=== PATIENT | female | born 2000 | race Two or more races ===

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

== ENCOUNTER 2020-01-14 16:56 | Emergency (ER) | payer SELFPAY ==
[~2020-01-14] VITALS: Ht 167.6 cm; Wt 64.0 kg
[~2020-01-14 16:56] MED LIST changes: +LACT20SO PO
--- NOTE | 2020-01-14 18:59 | PHYS DOC ---
Past Medical History Past Medical History: No Pertinent History Additional Past Medical Histor: PAST HYPERVENTALATION (VERNELL HERNANDEZ INSURANCE RISK SURVEYOR) Past Surgical History: Other Additional Past Surgical Histo: D & C (VERNELL HERNANDEZ INSURANCE RISK SURVEYOR) Smoking Status: Never Smoker Alcohol Use: None Drug Use: None (VERNELL HERNANDEZ APRN) General Adult EDM: Chief Complaint: OTHER COMPLAINTS HPI: HPI: Patient is a 19 year old female who presents with 3 days of no no taste, smell, headache. She is here for a Covid test. Patient denies shortness of breath, chest pain, abdominal pain, nausea, vomiting, diarrhea, dizziness, cough. Rajinder es any pain at this time. She states she is eating and drinking appropriately. She has a past medical history of hyperventilation and D&C. (VERNELL HERNANDEZ INSURANCE RISK SURVEYOR) Review of Systems: Review of Systems: Constitutional: Denies fever or chills. [] Eyes: Denies change in visual acuity. [] HENT: Denies nasal congestion or sore throat. + Loss of taste and smell no [] Respiratory: Denies cough or shortness of breath. [] Cardiovascular: Denies chest pain or edema. [] GI: Denies abdominal pain, nausea, vomiting, bloody stools or diarrhea. [] : Denies dysuria. [] Musculoskeletal: Denies back pain or joint pain. [] Integument: Denies rash. [] Neurologic: + headache, denies focal weakness or sensory changes. [] Endocrine: Denies polyuria or polydipsia. [] Lymphatic: Denies swollen glands. [] Psychiatric: Denies depression or anxiety. [] (VERNELL HERNANDEZ INSURANCE RISK SURVEYOR) Heart Score: Risk Factors: Risk Factors: DM, Current or recent (<one month) smoker, HTN, HLP, family history of CAD, obesity. Risk Scores: Score 0 - 3: 2.5% MACE over next 6 weeks - Discharge Home Score 4 - 6: 20.3% MACE over next 6 weeks - Admit for Clinical Observation Score 7 - 10: 72.7% MACE over next 6 weeks - Early Invasive Strategies (VERNELL HERNANDEZ INSURANCE RISK SURVEYOR) Allergies: Allergies: Allergies Coded Allergies Type Severity Reaction Last Updated Verified No Known Drug Allergies 10/29/19 No ([facility]) Physical Exam: PE: Constitutional: Well developed, well nourished, no acute distress, non-toxic appearance. [] HENT: Normocephalic, atraumatic, bilateral external ears normal, oropharynx moist, no oral exudates, nose normal. [] Eyes: PERRLA, EOMI, conjunctiva normal, no discharge. [] Neck: Normal range of motion, no tenderness, supple, no stridor. [] Cardiovascular:Heart rate regular rhythm, no murmur [] Lungs & Thorax: Bilateral breath sounds clear to auscultation [] Abdomen: Bowel sounds normal, soft, no tenderness, no masses, no pulsatile masses. [] Skin: Warm, dry, no erythema, no rash. [] Back: No tenderness, no CVA tenderness. [] Extremities: No tenderness, no cyanosis, no clubbing, ROM intact, no edema. [] Neurologic: Alert and oriented X 3, normal motor function, normal sensory function, no focal deficits noted. [] Psychologic: Affect normal, judgement normal, mood normal. Normal physical exam [] ([facility] Current Patient Data: Vital Signs: Vital Signs Date Time Temp Pulse Resp B/P (MAP) Pulse Ox O2 Delivery O2 Flow Rate FiO2 01/14/20 17:25 98.6 60 16 140/78 (98) 100 Room Air 98.6 ([facility] EKG: EKG: [] ([facility]) Radiology/Procedures: Radiology/Procedures: [] ([facility]) Course & Med Decision Making: Course & Med Decision Making Pertinent Labs and Imaging studies reviewed. (See chart for details) COVID-19 CRITERIA: The patient was evaluated during the global COVID-19 pandemic, and that diagnosis was suspected/considered upon their initial presentation. Their evaluation, treatment and testing was consistent with current guidelines for patients who present with complaints or symptoms that may be related to COVID-19. See HPI. Alert and oriented x4. Speaks in full complete sentences. Ambulatory with a steady gait. Skin pink warm and dry. Vital signs within normal limits. Patient is tested for Covid and is discharged home to quarantine. [] (VERNELL HERNANDEZ APRN) La Disclaimer: [place] Disclaimer: This electronic medical record was generated, in whole or in part, using a voice recognition dictation system. (VERNELL HERNANDEZ APRN) COVID-19 Patient Risks: Age 65 or older: No Sign of co-morbidity: No Exp to person + for COVID: No Exp to PUI: No Travel from affected area: No Lower respiratory symptoms: No Fever: No Other: Yes (LOSS OF TASTE AND SMELL, HEADACHE) (VERNELL HERNANDEZ APRN) PPE Use: Full PPE with N95 mask or PAPR: Yes (VERNELL HERNANDEZ APRN) Departure Departure Impression: Primary Impression: Person under investigation for COVID-19 Additional Impressions: Loss of taste Loss of smell Disposition: 01 DC HOME SELF CARE/HOMELESS Condition: STABLE Referrals: NO PCP (PCP) Patient Instructions: General Headache Without Cause Additional Instructions: Drink plenty of fluids. Follow-up with primary care provider if needed. Take Tylenol or ibuprofen for your pain. If you begin having severe shortness of breath or chest pain return to the emergency room. You have been tested for or diagnosed with COVID-19. It is an infection caused by a new type of coronavirus. COVID-19 will cause cold-like or mild flu symptoms in most. It can cause more severe symptoms like problems breathing in some. There is no treatment for COVID-19. The body will clear the infection over time. Self-care will help to ease discomfort. Steps to Take: Self-Care Rest as needed. Healthy habits may help you feel better. Steps include: Choose healthy foods including fruits and vegetables. Drink water throughout the day. Get plenty of sleep each night. If you smoke, try to quit. It may ease breathing. Avoid alcohol. Keep Others Healthy The virus can spread to others. Droplets are released every time you sneeze or cough. The droplets can get into the mouth, nose, or eyes of people near you and lead to infection. To lower the chances of spreading COVID-19 to others: Stay at home until your doctor has said it is safe to leave. If you tested positive this will mean staying isolated until both of the following are true: At least 7 days have passed since the start of illness. You are free of fever for at least 72 hours without the use of medicine. During this time: - Avoid public areas, events, or transportation. Do not return to work or s chool until your doctor has said it is safe to do so. - Call ahead if you need to go to a medical center. Let them know you may have COVID-19. It will help them guide you where to go. They may also ask you to wear a facemask when you come to the office. - If you call for emergency medical services, let them know you may have COVID- 19. While at home: - Try to avoid close contact with others. Stay about 6 feet away. - If possible, spend most of your time in a separate room from others. - Use a face mask if you will be in close contact with others such as sharing a room or vehicle. - Have someone wipe down common surfaces in the home. Use household charge auditor every day on areas like doorknobs, counters, or sinks. - Cough or sneeze into a tissue. Throw the tissue away right after use. If a tissue is not available, cough or sneeze into your elbow. - Wash your hands often. Wash them after sneezing or coughing. Use soap and water and wash for at least 20 seconds. Alcohol based hand tar heat exchanger cleaner can be used if soap and water is not available. - Do not prepare food for others. Avoid sharing personal items like forks, spoons, or toothbrushes. - Avoid close contact with pets while you are sick. There is no evidence of the virus passing to pets. This is a safety step until more is known about this virus. Isolation can be frustrating. Social interaction can help. Keep in touch with fr iends and family through phone and tech options. You can still interact with others in your home, just keep a safe distance of about 6 feet. Follow-up: Your doctors office will check in with you to see if there are any changes in your health. You may be asked to keep track of symptoms to share with them. They will also let you know when you are clear to be in public again. Problems to Look Out For: Contact your doctor if your recovery is not going as you expect. Get emergency care if you have problems such as: - Trouble breathing - Nonstop chest pain or pressure - Changes in awareness, confusion, or problems waking - Lips or face have bluish color - Worsening of symptoms If you think you have an emergency, call for emergency medical services right away. As taken from [facility] Attending Signature Attending Signature I have reviewed the PA/TESTER SOUND's note and plan of care. I was available for consultation as needed during the patient's visit in the emergency department. I agree with the clinical impression, plan, and disposition. (MIKEL ADHIKARI DO) VERNELL HERNANDEZ APRN Jan 14, 2020 18:59 MIKEL ADHIKARI DO Jan 14, 2020 23:06
[2020-01-14 19:05] VITALS: BP 129/92
--- NOTE | 2020-01-17 09:09 | NUR ---
IP: Informed pt of positive COVID test and the need to quarantine for 14 days. Pt verbalized understanding.
== END 2020-01-14 19:05 | disposition home or self-care (01) ==
LOC: ER 16:56
DX: U07.1 COVID-19 (principal); R51.9 Headache, unspecified; R43.8 Other disturbances of smell and taste
CPT/HCPCS: 99283; C9803; U0003

== ENCOUNTER 2020-02-05 11:26 | Emergency (ER) | payer SELFPAY ==
[~2020-02-05] VITALS: Ht 167.6 cm; Wt 66.8 kg
[2020-02-05 12:32] LABS: BILIRUBIN,URINE NEGATIVE (NEG); CLARITY,URINE CLEAR; COLOR,URINE YELLOW; NITRITE,URINE NEGATIVE (NEG); PH,URINE 6.5 (<5.0-8.0); PROTEIN,URINE NEGATIVE (NEG-TRACE); UROBILINOGEN,URINE 0.2 mg/dL (0.2 mg/dL)
[2020-02-05 12:59] LABS: BACTERIA,URINE FEW /HPF (0-FEW); RBC,URINE 0 /HPF (0-2); WBC,URINE 0 /HPF (0-4)
--- NOTE | 2020-02-05 13:34 | ED.ADGEN ---
Past Medical History Past Medical History: No Pertinent History Additional Past Medical Histor: PAST HYPERVENTALATION Past Surgical History: Other Additional Past Surgical Histo: D & C Smoking Status: Never Smoker Alcohol Use: None Drug Use: None General Adult EDM: Chief Complaint: ABDOMINAL PAIN IN HPI: HPI: Patient is a 19 year old female, accompanied by her significant other, who presents to the emergency department for further evaluation of her . Patient states she was at a clinic in [facility] and they couldn't find anything on her ultrasound so they told her to come to the emergency department. Patient reports she is two, para zero, with one previous miscarriage at approximately 7 weeks gestation. She denies any abdo manpreet pain, back pain, nausea, vomiting, diarrhea, irregular vaginal discharge, vaginal bleeding, dysuria, hematuria, fever, cough, or shortness of breath. Patient states she has had increased urinary frequency. She is unsure of her last menstrual cycle was either at the end of November or the end of December. She currently denies any pain. Review of Systems: Review of Systems: Complete ROS is negative unless otherwise noted in HPI. Allergies: Allergies: Allergies Coded Allergies Type Severity Reaction Last Updated Verified No Known Drug Allergies 10/29/19 No Physical Exam: PE: See Above Constitutional: Well developed, well nourished, no acute distress, non-toxic appearance. [] HENT: Normocephalic, atraumatic, bilateral external ears normal, nose normal. [] Eyes: PERRLA, EOMI, conjunctiva normal, no discharge. [] Neck: Normal range of motion, no stridor. [] Cardiovascular:Heart rate regular rhythm Lungs & Thorax: Respirations even and unlabored, no retractions, no respiratory distress Abdomen: soft, no tenderness Skin: Warm, dry, no erythema, no rash. [] Extremities: No cyanosis, ROM intact, no edema. [] Neurologic: Alert and oriented X 3, no focal deficits noted. [] Psychologic: Affect normal, judgement normal, mood normal. [] Current Patient Data: Labs: Laboratory Tests Test 02/05/20 11:36 02/05/20 11:46 02/05/20 12:17 Urine Collection Type Unknown Urine Color Yellow Urine Clarity Clear Urine pH 6.5 (<5.0-8.0) Urine Specific [place] 1.015 (1.000-1.030) Urine Protein Negative mg/dL (NEG-TRACE) Urine Glucose (UA) Negative mg/dL (NEG) Urine Ketones (Stick) Negative mg/dL (NEG) Urine Blood Negative (NEG) Urine Nitrite Negative (NEG) Urine Bilirubin Negative (NEG) Urine Urobilinogen Dipstick 0.2 mg/dL (0.2 mg/dL) Urine Leukocyte Esterase Negative (NEG) Urine RBC 0 /HPF (0-2) Urine WBC 0 /HPF (0-4) Urine Squamous Epithelial Cells Few /LPF Urine Bacteria Few /HPF (0-FEW) Urine Mucus Slight /LPF POC Urine HCG, Qualitative Hcg positive (Negative) Maternal Serum HCG Beta Subunit 2374 mIU/mL (0-5) H Vital Signs: Vital Signs Date Time Temp Pulse Resp B/P (MAP) Pulse Ox O2 Delivery O2 Flow Rate FiO2 02/05/20 12:42 64 14 114/77 (89) 98 Room Air 02/05/20 11:36 98.3 98.3 EKG: EKG: [] Heart Score: Risk Factors: Risk Factors: DM, Current or recent (<one month) smoker, HTN, HLP, family history of CAD, obesity. Risk Scores: Score 0 - 3: 2.5% MACE over next 6 weeks - Discharge Home Score 4 - 6: 20.3% MACE over next 6 weeks - Admit for Clinical Observation Score 7 - 10: 72.7% MACE over next 6 weeks - Early Invasive Strategies Radiology/Procedures: Radiology/Procedures: PROCEDURE: OB <14 WKS W/TV OB ultrasound less than 14 weeks 02/05/2020 CLINICAL HISTORY: First trimester . Vaginal bleeding. TECHNIQUE: Using the distended urinary bladder as a sonographic window, a real-time ultrasound examination of the pelvis was performed. Additionally in an attempt to better evaluate the uterus and adnexa, a transvaginal ultrasound study was performed. Multiple images were obtained. FINDINGS: An oval-shaped fluid collection which resembles an early gestational sac is seen within the endometrial canal within the fundus/body of the uterus. This has a mean sac diameter of 5.1 mm which corresponds to an estimated gestational age by ultrasound of 5 weeks 2 days plus or minus a standard deviat ion of 6 days. No yolk sac or embryonic pole is seen within this gestational sac to confirm a living IUP this time. The Uterus is otherwise within normal limits. Both ovaries are within normal limits in size and echogenicity. The right ovary measures 3.5 x 3.2 x 2.4 cm in size. The left ovary measures 3.4 x 2.2 x 2.1 cm in size. No adnexal mass is seen. A small amount of free fluid is seen. IMPRESSION: Findings are seen consistent most likely with a very early IUP as discussed above. Electronically signed by: Molina Cason MD (02/05/2020 1:32 PM) [id number][] Course & Med Decision Making: Course & Med Decision Making I have reviewed the PA/CATECHIST's note and Plan of Care. I was available for consultation as needed during the patient's visit in the emergency department. I agree with the clinical impression, plans and disposition.Pertinent Labs and Imaging studies reviewed. (See chart for details) [] Dragon Disclaimer: Dragon Disclaimer: This electronic medical record was generated, in whole or in part, using a voice recognition dictation system. Departure Departure Impression: Primary Impression: Threatened in early Disposition: 01 DC HOME SELF CARE/HOMELESS Condition: STABLE Referrals: DIANE SCHUMACHER Jr, MD Patient Instructions: Threatened Miscarriage, [id number] Additional Instructions: Today your hCG level was 2374. This is consistent with a very early . Your ultrasound also had findings that are consistent with early intrauterine that measures 5 weeks and 2 days. I recommend that you follow-up with Dr. Hooper's office next week for a repeat ultrasound and recheck of your hCG level. Return to the ER if your symptoms worsen. LEO ESPINOZA APRN Feb 05, 2020 13:34 NABEEL HUA MD Feb 05, 2020 13:56
[2020-02-05 15:00] VITALS: BP 128/65
== END 2020-02-05 15:00 | disposition home or self-care (01) ==
LOC: ER 11:26
DX: O20.0 Threatened abortion (principal); Z3A.01 Less than 8 weeks gestation of pregnancy
CPT/HCPCS: 36415; 76801; 76817; 81001; 81025; 84702; 99284

== ENCOUNTER 2020-02-17 19:00 | Emergency (ER) | payer SELFPAY ==
[~2020-02-17] VITALS: Ht 167.6 cm; Wt 68.1 kg
[2020-02-17 19:45] LABS: BILIRUBIN,URINE NEGATIVE (NEG); CLARITY,URINE CLEAR; COLOR,URINE YELLOW; NITRITE,URINE NEGATIVE (NEG); PROTEIN,URINE NEGATIVE (NEG-TRACE); UROBILINOGEN,URINE 0.2 mg/dL (0.2 mg/dL)
[2020-02-17 19:50] LABS: BACTERIA,URINE 0 /HPF (0-FEW); BARBITURATES NEG (NEG); BENZODIAZEPINES NEG (NEG); CANNABINOIDS NEG (NEG); COCAINE NEG (NEG); METHADONE NEG (NEG); OPIATES NEG (NEG); PHENCYCLIDINE NEG (NEG); RBC,URINE 0 /HPF (0-2); WBC,URINE 0 /HPF (0-4)
[2020-02-17 19:51] LABS: AMPHETAMINE/METHAMPHETAMINE NEG (NEG)
[2020-02-17] MEDS ORDERED: FAMO-63 PO (19:53)
--- NOTE | 2020-02-17 19:53 | PHYS DOC ---
Past Medical History Past Medical History: No Pertinent History Additional Past Medical Histor: PAST HYPERVENTALATION (VERNELL HERNANDEZ IP LITIGATION ASSOCIATE) Past Surgical History: Other Additional Past Surgical Histo: D & C (VERNELL HERNANDEZ IP LITIGATION ASSOCIATE) Smoking Status: Never Smoker Alcohol Use: None Drug Use: None (VERNELL HERNANDEZ APRN) General Adult EDM: Chief Complaint: ABDOMINAL PAIN IN HPI: HPI: Patient is a 19 year old female who presents with at spicy [place] food tonight and then began having epigastric cramping and belching. She states the pain has now resolved. Currently denies nausea, vomiting, abdominal pain, chest pain, soa, dizziness, headache, diarrhea, fever, cough, numbness or tingling, abnormal vaginal discharge, vaginal bleeding. She states that she does have a OB and is taking her vitamins. (VERNELL HERNANDEZ IP LITIGATION ASSOCIATE) Review of Systems: Review of Systems: Constitutional: Denies fever or chills. [] Eyes: Denies change in visual acuity. [] HENT: Denies nasal congestion or sore throat. [] Respiratory: Denies cough or shortness of breath. [] Cardiovascular: Denies chest pain or edema. [] GI: + Epigastric abdominal pain, denies nausea, vomiting, bloody stools or diarrhea. [] : Denies dysuria. [] Musculoskeletal: Denies back pain or joint pain. [] Integument: Denies rash. [] Neurologic: Denies headache, focal weakness or sensory changes. [] Endocrine: Denies polyuria or polydipsia. [] Lymphatic: Denies swollen glands. [] Psychiatric: Denies depression or anxiety. [] (VERNELL HERNANDEZ IP LITIGATION ASSOCIATE) Heart Score: Risk Factors: Risk Factors: DM, Current or recent (<one month) smoker, HTN, HLP, family history of CAD, obesity. Risk Scores: Score 0 - 3: 2.5% MACE over next 6 weeks - Discharge Home Score 4 - 6: 20.3% MACE over next 6 weeks - Admit for Clinical Observation Score 7 - 10: 72.7% MACE over next 6 weeks - Early Invasive Strategies (VERNELL HERNANDEZ IP LITIGATION ASSOCIATE) Allergies: Allergies: Allergies Coded Allergies Type Severity Reaction Last Updated Verified No Known Drug Allergies 10/29/19 No (VERNELL HERNANDEZ APRN) Physical Exam: PE: Constitutional: Well developed, well nourished, no acute distress, non-toxic appearance. [] HENT: Normocephalic, atraumatic, bilateral external ears normal, oropharynx moist, no oral exudates, nose normal. [] Eyes: PERRLA, EOMI, conjunctiva normal, no discharge. [] Neck: Normal range of motion, no tenderness, supple, no stridor. [] Cardiovascular:Heart rate regular rhythm, no murmur [] Lungs & Thorax: Bilateral breath sounds clear to auscultation [] Abdomen: Bowel sounds normal, soft, no tenderness, no masses, no pulsatile masses. [] Skin: Warm, dry, no erythema, no rash. [] Back: No tenderness, no CVA tenderness. [] Extremities: No tenderness, no cyanosis, no clubbing, ROM intact, no edema. [] Neurologic: Alert and oriented X 3, normal motor function, normal sensory function, no focal deficits noted. [] Psychologic: Affect normal, judgement normal, mood normal. Normal physical exam [] (VERNELL HERNANDEZ APRN) Current Patient Data: Vital Signs: Vital Signs Date Time Temp Pulse Resp B/P (MAP) Pulse Ox O2 Delivery O2 Flow Rate FiO2 02/17/20 19:25 98.2 71 16 137/77 (97) 99 Room Air 98.2 (VERNELL HERNANDEZ APRN) EKG: EKG: [] (VERNELL HERNANDEZ APRN) Radiology/Procedures: Radiology/Procedures: [] ([facility]) Course & Med Decision Making: Course & Med Decision Making Pertinent Labs and Imaging studies reviewed. (See chart for details) See HPI. Abdomen soft and nontender. She denies any pain at this time. States her last period was January 09. Alert and oriented x4. Ambulatory with a steady gait. Speaks in full clear sentences. Skin pink warm and dry. Vital signs within normal limits. She states she is eating and drinking appropriately. 2030: Patient continues to be asymptomatic. She states she feels good. Patient will follow up with her primary care provider. I have wrote for her to take Pepcid nightly to help with any heartburn. [] (VERNELL HERNANDEZ APRN) La Disclaimer: La Disclaimer: This electronic medical record was generated, in whole or in part, using a voice recognition dictation system. (VERNELL HERNANDEZ APRN) Departure Departure Impression: Primary Impression: Epigastric abdominal pain affecting in first trimester Disposition: 01 DC HOME SELF CARE/HOMELESS Condition: STABLE Referrals: NO PCP (PCP) DIANE SCHUMACHER Jr, MD Patient Instructions: ABCs of , Abdominal Pain During , Diet for Gastroesophageal Reflux Disease, Adult, Gastroesophageal Reflux Disease, Adult, [id number] Additional Instructions: Follow-up with your OB doctor soon as possible. Take medication as it is prescribed. I would stay away from spicy foods. Drink plenty of water. If you begin having severe abdominal pain or began having vaginal bleeding return to emergency room. Scripts Famotidine (PEPCID) 20 Mg Tablet 20 MG PO HS, #14 TAB Prov: VERNELL HERNANDEZ APRN 02/17/20 Attending Signature Attending Signature I have reviewed the PA/INSPECTOR PRECISION's note and plan of care. I was available for consultation as needed during the patient's visit in the emergency department. I agree with the clinical impression, plan, and disposition. (MIKEL ADHIKARI DO) VERNELL HERNANDEZ APRN Feb 17, 2020 19:53 MIKEL ADHIKARI DO Feb 17, 2020 23:25
[2020-02-17 20:05] LABS: BASO # 0.1 x10^3/uL (0.0-0.2); BASO % 1 % (0-3); EOS # 0.1 x10^3/uL (0.0-0.7); EOS % 1 % (0-3); HEMATOCRIT 37.1 % (36.0-47.0); HEMOGLOBIN 12.5 g/dL (12.0-15.5); LYMPH # 2.4 x10^3/uL (1.0-4.8); LYMPH % 23 % (24-48); MEAN CORPUSCULAR HEMOGLOBIN 30 pg (25-35); MEAN CORPUSCULAR HGB CONC 34 g/dL (31-37); MEAN CORPUSCULAR VOLUME 89 fL (79-100); MONO # 0.5 x10^3/uL (0.0-1.1); MONO % 5 % (0-9); NEUT # 7.2 x10^3/uL (1.8-7.7); NEUT % 70 % (31-73); PLATELET COUNT 165 x10^3/uL (140-400); RED BLOOD COUNT 4.19 x10^6/uL (3.50-5.40); RED CELL DISTRIBUTION WIDTH 14.6 % (11.5-14.5); WHITE BLOOD COUNT 10.3 x10^3/uL (4.0-11.0)
[2020-02-17 20:13] LABS: CREATININE 0.5 mg/dL (0.6-1.0); GFR 158.9; POTASSIUM 3.7 mmol/L (3.5-5.1)
[2020-02-17 20:21] LABS: ALBUMIN 3.8 g/dL (3.4-5.0); ALBUMIN/GLOBULIN RATIO 1.2 (1.0-1.7); TOTAL BILIRUBIN 0.3 mg/dL (0.2-1.0); TOTAL PROTEIN 7.1 g/dL (6.4-8.2)
[2020-02-17 20:52] VITALS: BP 117/66
== END 2020-02-17 21:28 | disposition home or self-care (01) ==
LOC: ER 19:00
DX: O26.891 Other specified pregnancy related conditions, first trimester (principal); R10.13 Epigastric pain; Z98.890 Other specified postprocedural states; Z3A.00 Weeks of gestation of pregnancy not specified
CPT/HCPCS: 36415; 80053; 80307; 81001; 81025; 83690; 84702; 85025; 99283

== ENCOUNTER 2020-03-14 13:03 | Emergency (ER) | payer OTHER ==
[~2020-03-14] VITALS: Ht 167.6 cm; Wt 69.2 kg
[~2020-03-14 13:03] MED LIST changes: +FAMO-63 PO
[2020-03-14 13:05] VITALS: BP 145/72
[2020-03-14 13:33] LABS: BASO # 0.1 x10^3/uL (0.0-0.2); BASO % 1 % (0-3); EOS # 0.1 x10^3/uL (0.0-0.7); EOS % 1 % (0-3); HEMATOCRIT 41.6 % (36.0-47.0); HEMOGLOBIN 14.1 g/dL (12.0-15.5); LYMPH # 3.3 x10^3/uL (1.0-4.8); LYMPH % 28 % (24-48); MEAN CORPUSCULAR HEMOGLOBIN 31 pg (25-35); MEAN CORPUSCULAR HGB CONC 34 g/dL (31-37); MEAN CORPUSCULAR VOLUME 90 fL (79-100); MONO # 0.6 x10^3/uL (0.0-1.1); MONO % 5 % (0-9); NEUT # 7.7 x10^3/uL (1.8-7.7); NEUT % 65 % (31-73); PLATELET COUNT 206 x10^3/uL (140-400); RED BLOOD COUNT 4.64 x10^6/uL (3.50-5.40); RED CELL DISTRIBUTION WIDTH 13.4 % (11.5-14.5); WHITE BLOOD COUNT 11.7 x10^3/uL (4.0-11.0)
[2020-03-14 13:33] LABS: BILIRUBIN,URINE NEGATIVE (NEG); CLARITY,URINE TURBID; COLOR,URINE YELLOW; NITRITE,URINE NEGATIVE (NEG); PROTEIN,URINE NEGATIVE (NEG-TRACE); UROBILINOGEN,URINE 0.2 mg/dL (0.2 mg/dL)
[2020-03-14 14:00] LABS: RBC,URINE 0 /HPF (0-2); WBC,URINE OCC /HPF (0-4)
[2020-03-14 14:01] LABS: AMORPHOUS SEDIMENT,UR PRESENT /HPF; BACTERIA,URINE FEW /HPF (0-FEW)
--- NOTE | 2020-03-14 14:33 | RAD ---
EXAM: Obstetrics sonogram. HISTORY: Vaginal bleeding. TECHNIQUE: Sonographic imaging of the pelvis was performed. COMPARISON: 02/05/2020. FINDINGS: There is a single intrauterine gestational sac with pole. The crown-rump length is 1.7 cm, corresponding with a gestational age of 8 weeks and 1 day. No cardiac activity is s een, consistent with intrauterine demise. There are abnormal septations throughout the gestatio nal sac. No normal yolk sac is seen. The ovaries are normal in size and demonstrate normal blood flow . There is no pelvic free fluid. IMPRESSION: Single intrauterine fetus with an estimated gestational age of 8 weeks and 1 day and no i dentifiable cardiac activity. This is consistent with intrauterine demise/missed miscarriage. Electronically signed by: Maliha Stovall MD (03/14/2020 2:30 PM) [id number]
--- NOTE | 2020-03-14 14:40 | ED.ADGEN ---
Past Medical History Past Medical History: Other Additional Past Medical Histor: PAST HYPERVENTALATION, miscarriage Past Surgical History: Other Additional Past Surgical Histo: D & C Smoking Status: Never Smoker Alcohol Use: None Drug Use: None General Adult EDM: Chief Complaint: ABDOMINAL PAIN IN HPI: HPI: Patient is a 19 year old female, accompanied by her significant other, who presents to the emergency department with complaints of lower abdominal cramping that began today. Patient states she is currently her last menstrual cycle was on December 15, 2019. She saw Dr. Stewart last week and had an ultrasound in the office but no heartbeat was detected. Patient states that his office was supposed to call her this week to tell her what to do, but patient did not hear back from Dr. Stewart's office. She denies any vaginal bleeding,, vaginal odor, or irregular vaginal discharge. She denies any increased urinary frequency, dysuria, hematuria, back pain, nausea, vomiting, diarrhea, fever, or cough. She currently rates her discomfort a 4 out of 10 on the pain scale, she denies any alleviating factors. Patient states this is her second , her first ended in a miscarriage that she had a D&C for. Review of Systems: Review of Systems: Complete ROS is negative unless otherwise noted in HPI. Allergies: Allergies: Allergies Coded Allergies Type Severity Reaction Last Updated Verified No Known Drug Allergies 03/14/20 No Physical Exam: PE: See Above Constitutional: Well developed, well nourished, no acute distress, non-toxic appearance. [] HENT: Normocephalic, atraumatic, bilateral external ears normal, nose normal. [] Eyes: PERRLA, EOMI, conjunctiva normal, no discharge. [] Neck: Normal range of motion, no stridor. [] Cardiovascular:Heart rate regular rhythm Lungs & Thorax: Respirations even and unlabored, no retractions, no respiratory distress Abdomen: soft, no tenderness, no palpable masses, no rebound tenderness, no guarding Skin: Warm, dry, no erythema, no rash. [] Extremities: No cyanosis, ROM intact, no edema. [] Neurologic: Alert and oriented X 3, no focal deficits noted. [] Psychologic: Affect normal, judgement normal, mood normal. [] Current Patient Data: Labs: Laboratory Tests Test 03/14/20 13:07 03/14/20 13:12 03/14/20 13:20 Urine Collection Type Unknown Urine Color Yellow Urine Clarity Turbid Urine pH 8.0 (<5.0-8.0) Urine Specific [place] 1.015 (1.000-1.030) Urine Protein Negative mg/dL (NEG-TRACE) Urine Glucose (UA) Negative mg/dL (NEG) Urine Ketones (Stick) Negative mg/dL (NEG) Urine Blood Negative (NEG) Urine Nitrite Negative (NEG) Urine Bilirubin Negative (NEG) Urine Urobilinogen Dipstick 0.2 mg/dL (0.2 mg/dL) Urine Leukocyte Esterase Negative (NEG) Urine RBC 0 /HPF (0-2) Urine WBC Occ /HPF (0-4) Urine Squamous Epithelial Cells Few /LPF Urine Amorphous Sediment Present /HPF Urine Bacteria Few /HPF (0-FEW) POC Urine HCG, Qualitative Hcg positive (Negative) White Blood Count 11.7 x10^3/uL (4.0-11.0) H Red Blood Count 4.64 x10^6/uL (3.50-5.40) Hemoglobin 14.1 g/dL (12.0-15.5) Hematocrit 41.6 % (36.0-47.0) Mean Corpuscular Volume 90 fL (79-100) Mean Corpuscular Hemoglobin 31 pg (25-35) Mean Corpuscular Hemoglobin Concent 34 g/dL (31-37) Red Cell Distribution Width 13.4 % (11.5-14.5) Platelet Count 206 x10^3/uL (140-400) Neutrophils (%) (Auto) 65 % (31-73) Lymphocytes (%) (Auto) 28 % (24-48) Monocytes (%) (Auto) 5 % (0-9) Eosinophils (%) (Auto) 1 % (0-3) Basophils (%) (Auto) 1 % (0-3) Neutrophils # (Auto) 7.7 x10^3/uL (1.8-7.7) Lymphocytes # (Auto) 3.3 x10^3/uL (1.0-4.8) Monocytes # (Auto) 0.6 x10^3/uL (0.0-1.1) Eosinophils # (Auto) 0.1 x10^3/uL (0.0-0.7) Basophils # (Auto) 0.1 x10^3/uL (0.0-0.2) Maternal Serum HCG Beta Subunit 62463 mIU/mL (0-5) H Laboratory Tests 03/14/20 13:20 Vital Signs: Vital Signs Date Time Temp Pulse Resp B/P (MAP) Pulse Ox O2 Delivery O2 Flow Rate FiO2 03/14/20 13:05 98.3 87 16 145/72 (96) 100 Room Air 98.3 EKG: EKG: [] Heart Score: Risk Factors: Risk Factors: DM, Current or recent (<one month) smoker, HTN, HLP, family histo ry of CAD, obesity. Risk Scores: Score 0 - 3: 2.5% MACE over next 6 weeks - Discharge Home Score 4 - 6: 20.3% MACE over next 6 weeks - Admit for Clinical Observation Score 7 - 10: 72.7% MACE over next 6 weeks - Early Invasive Strategies Radiology/Procedures: Radiology/Procedures: PROCEDURE: OB <14 WKS W/TV EXAM: Obstetrics sonogram. HISTORY: Vaginal bleeding. TECHNIQUE: Sonographic imaging of the pelvis was performed. COMPARISON: 02/05/2020. FINDINGS: There is a single intrauterine gestational sac with pole. The crown-rump length is 1.7 cm, corresponding with a gestational age of 8 weeks and 1 day. No cardiac activity is seen, consistent with intrauterine demise. There are abnormal septations throughout the gestational sac. No normal yolk sac is seen. The ovaries are normal in size and demonstrate normal blood flow. There is no pelvic free fluid. IMPRESSION: Single intrauterine fetus with an estimated gestational age of 8 weeks and 1 day and no identifiable cardiac activity. This is consistent with intrauterine demise/missed miscarriage. [] Course & Med Decision Making: Course & Med Decision Making Pertinent Labs and Imaging studies reviewed. (See chart for details) 1444- Spoke with Dr. Stewart and advised of US report. Will ask pt if she would like to have D&C today in the hospital or if she would like to follow up. 1510- Pt would like to go home, I offered to prescribe pain medication for pain, pt declined prescription. Pt encouraged to take TYlenol or Ibuprofen as needed for pain. Call Dr. Stewart's office this afternoon to arrange follow up jennifer ointment. Return to the ER if symptoms worsen. [] La Disclaimer: La Disclaimer: This electronic medical record was generated, in whole or in part, using a voice recognition dictation system. Departure Departure Impression: Primary Impression: Missed with demise before 20 completed weeks of gestation Disposition: 01 DC HOME SELF CARE/HOMELESS Condition: STABLE Referrals: NO PCP (PCP) MIKEL STEWART MD Patient Instructions: Intrauterine Demise Additional Instructions: Call Dr. Stewart's office this afternoon to schedule follow-up. Return to the ER if symptoms worsen. You may take Tylenol or Ibuprofen as needed for pain. LEO ESPINOZA TUBE SORTER Mar 14, 2020 14:39
== END 2020-03-14 15:39 | disposition home or self-care (01) ==
LOC: ER 13:03
DX: O36.4XX0 Maternal care for intrauterine death, not applicable or unspecified (principal); Z3A.08 8 weeks gestation of pregnancy
CPT/HCPCS: 36415; 76801; 76817; 81001; 81025; 84702; 85025; 86900; 86901; 99284

== ENCOUNTER 2020-03-17 09:34 | Day surgery (SDC) | payer OTHER ==
--- NOTE | 2020-03-16 12:28 | NUR ---
SCHEDULED FOR D&C 03/17 AT 11 AM. WAS COVID POSITIVE 01/14/20 WITH MILD SYMPTOMS. ACCORDING TO PHASE III COVID-19 ELECTIVE PROCEDURE REENTRY POLICY DOES NOT NEED TO BE RETESTED SINCE >4 WEEKS FROM PREVIOUS COVID+ TEST.
[~2020-03-17 09:34] MED LIST changes: +HYDROmorphone 2 MG/ML VIAL IVP PRN; +IV RINGERS,LACTATED 1000ML 1,000 ML IV SCH; +MORPHINE SULFATE 2 MG/ML VIAL. IVP PRN; +PROCHLORPERAZINE 10 MG/2 ML VIAL. IVP PRN; +fentaNYL PF VIAL 100 MCG/2 ML VIAL IVP PRN
[2020-03-17] MEDS ORDERED: DOXYCYCLINE HYCLATE 100 MG TABLET PO ONE (10:00)
[2020-03-17 10:18] LABS: BASO % 1 % (0-3); EOS # 0.1 x10^3/uL (0.0-0.7); EOS % 2 % (0-3); HEMATOCRIT 38.4 % (36.0-47.0); LYMPH # 2.3 x10^3/uL (1.0-4.8); LYMPH % 32 % (24-48); MEAN CORPUSCULAR HEMOGLOBIN 30 pg (25-35); MEAN CORPUSCULAR HGB CONC 34 g/dL (31-37); MEAN CORPUSCULAR VOLUME 89 fL (79-100); MONO # 0.5 x10^3/uL (0.0-1.1); MONO % 6 % (0-9); NEUT # 4.3 x10^3/uL (1.8-7.7); NEUT % 59 % (31-73); PLATELET COUNT 182 x10^3/uL (140-400); RED BLOOD COUNT 4.29 x10^6/uL (3.50-5.40); RED CELL DISTRIBUTION WIDTH 13.4 % (11.5-14.5); WHITE BLOOD COUNT 7.2 x10^3/uL (4.0-11.0)
[2020-03-17] MEDS ORDERED: fentaNYL PF VIAL 100 MCG/2 ML VIAL ONE ×2 (10:28→11:33)
[2020-03-17] MEDS ORDERED: LIDOCAINE 2% PF 5 ML VIAL. ONE (10:30)
[2020-03-17] MEDS ORDERED: PROPOFOL 10 MG/ML (20ML) VIAL. IV ONE (10:30)
[2020-03-17] MEDS ORDERED: DEXAMETHASONE SOD PHOS 4 MG/ML VIAL ONE (10:31)
[2020-03-17] MEDS ORDERED: ONDANSETRON PF 4 MG/2 ML VIAL. ONE (10:31)
[2020-03-17] MEDS ORDERED: SEVOFLURANE 31 TO 60 MINUTES. IH ONE (11:25)
[2020-03-17] MEDS ORDERED: IBUP-1060 PO (11:33)
[2020-03-17] MEDS ORDERED: KETOROLAC 30 MG/ML VIAL. ONE (11:33)
[2020-03-17] MEDS ORDERED: OXYC1TAB15 PO (11:33)
[2020-03-17 12:00] VITALS: BP 108/51
[2020-03-17] MEDS ORDERED: OXYC-325 PO (12:00)
--- NOTE | 2020-03-17 12:56 | PDOC4 ---
OPERATIVE NOTE: PreOp Dx: Missed AB (~8.1 wks) PostOp: same Procedure: Suction D&C Surgeons: Andrew Stewart Anesthesia: GETA EBL: 100 cc Path: POC Complications: None MIKEL STEWART MD Mar 17, 2020 12:56
--- NOTE | 2020-03-17 13:22 | OP ---
DATE OF SURGERY: 03/17/2020 PREOPERATIVE DIAGNOSIS: Missed , approximately 8.1 week in size. POSTOPERATIVE DIAGNOSIS: Missed , approximately 8.1 week in size. PROCEDURE: Suction dilation and curettage. SURGEON: Mikel Stewart MD ANESTHESIA: General endotracheal intubation. ESTIMATED BLOOD LOSS: 100 mL. SPECIMENS REMOVED: Products of conception. COMPLICATIONS: None. INDICATIONS: The patient is a 19-year-old 2, para 0-0-1-0, who presented to the office after an ER followup. The patient had been seen in the office previously on 03/10/2020 for a new OB visit. During the bedside ultrasound, there were concerns that a heart rate could not be obtained. The patient was to follow up with a formal ultrasound performed by Radiology. Prior to this occurring, the patient presented to the ER on 03/14/2020 with abdominal pain. An ultrasound was then performed there and confirmed the loss. The crown rump length was equivalent to a gestation of 8.1 weeks. Discussion was held with the patient for treatment options and she ultimately decided for a suction D and C. The patient underwent said procedure. DESCRIPTION OF PROCEDURE: The patient was taken to the operating room where general endotracheal intubation was obtained without difficulty. The patient was prepped and draped in a normal sterile fashion. Speculum was placed in the patient's vagina to visualize the cervix. A single tooth tenaculum was then placed on the anterior lip of the cervix. At that point, the cervix was serially dilated to allow for a 9 mm suction curette to be placed. Once it was sufficiently dilated, the suction curette was then advanced to the uterine fundus. Suction device was then activated and the curette was rotated to clear all products debris. After the first pass, some of the products were seen exiting the os. This was then grabbed with a ring forceps and then removed. This specimen was sent with the rest of the products of conception. The suction curette was then continued and approximately 3 passes, minimal products of conception as well as minimal blood was returning. At that point, sharp curettage was performed until gritty texture was felt in all 4 quadrants. At that point, hemostasis was noted, so the tenaculum was removed. Good hemostasis was noted at the tenaculum site. The patient was then brought to the recovery room in stable condition. Prior to the procedure, the patient received 200 mg of doxycycline p.o. MIKEL STEWART MD DR: Rula JOB#: [id number] / [id number]
--- NOTE | 2020-03-21 15:07 | PATHOLOGY ---
[facility] Accession Number: [id number] . 01 Material submitted: . product of conception - PRODUCTS OF CONCEPTION . 02 Diagnosis: Uterine contents, dilatation and curettage: - Products of conception, comprised of focally degenerating immature chorionic villi containing nucleated red blood cells, and segments of decidual tissue showing focal necrosis, hemorrhage, and acute inflammation. . (JPM:mml; 03/20/2020) QLM 03/20/2020 1619 Local . 02 Electronically signed: . Kristian Madison MD, Pathologist NPI- [id number] . 01 Gross description: . Received in formalin labeled "Mitzi Hinds, products of conception" is a 73 g, 9.1 x 7.3 x 3.8 cm aggregate of spongy, red-purple soft tissue. No vesicular structures or parts are grossly identified. Auto Refinisher tissue is submitted in cassettes A1-A3. ([facility]; 03/19/2020) GZA/GZA 03/19/2020 0750 Local . 02 Pathologist provided ICD-10: Z03.89 . 02 CPT . 313009 Specimen Comment: A courtesy copy of this report has been sent to [phone] Specimen Comment: Report sent to Specimen Comment: A duplicate report has been generated due to demographic updates. [facility]formed at: [facility] [address], [place] [id number] MD Benjamin Barnett MD Phone: [phone] Performed at: 02 [facility] [address] [place], [place] [id number] MD Kristian Madison MD Phone: [phone]
== END 2020-03-17 12:40 | disposition home or self-care (01) ==
LOC: SURG 09:34
PROVIDERS: ATTEND Obstetrics & Gynecology
DX: O02.1 Missed abortion (principal); Z79.899 Other long term (current) drug therapy; Z98.890 Other specified postprocedural states
CPT/HCPCS: 36415; 59820; 85025; 86850; 86900; 86901; J1100; J1885; J2405; J2704; J3010

== ENCOUNTER 2020-07-16 19:19 | Emergency (ER) | payer OTHER ==
[~2020-07-16] VITALS: Ht 167.6 cm; Wt 70.0 kg
[~2020-07-16 19:19] MED LIST changes: -HYDROmorphone 2 MG/ML VIAL IVP PRN; -IV RINGERS,LACTATED 1000ML 1,000 ML IV SCH; -MORPHINE SULFATE 2 MG/ML VIAL. IVP PRN; +OXYC-325 PO; -PROCHLORPERAZINE 10 MG/2 ML VIAL. IVP PRN; -fentaNYL PF VIAL 100 MCG/2 ML VIAL IVP PRN
[2020-07-16 19:52] LABS: BILIRUBIN,URINE NEGATIVE (NEG); CLARITY,URINE CLOUDY; COLOR,URINE YELLOW; NITRITE,URINE NEGATIVE (NEG); PH,URINE 8.5 (<5.0-8.0); PROTEIN,URINE NEGATIVE (NEG-TRACE); UROBILINOGEN,URINE 0.2 mg/dL (0.2 mg/dL)
[2020-07-16 19:57] LABS: BACTERIA,URINE 0 /HPF (0-FEW)
[2020-07-16 19:58] LABS: AMORPHOUS SEDIMENT,UR PRESENT /HPF
--- NOTE | 2020-07-16 21:45 | RAD ---
OB ultrasound less than 14 weeks 07/16/2020 CLINICAL HISTORY: First trimester with vaginal bleeding. TECHNIQUE: A transvaginal ultrasound study was performed. Multiple images were obtained. FINDINGS: The uterus is within normal limits in size. It measures 7.4 x 4.9 x 4.8 cm in longitudinal, transverse, and the AP dimensions. It is retroverted. The endometrial echo complex measures 12.6 mm in thickness which is within normal limits. No gestational sac is seen within the endometrial canal. No focal abnormality of the uterus is seen. Both ovaries are within normal limits in size and echogenicity. The right ovary measures 3.2 x 2.6 x 1.6 cm in size. The left ovary measures 3.3 x 2.1 x 1.9 cm in size. No adnexal mass is seen. No free fluid is noted. IMPRESSION: Negative study. No IUP is seen. This ultrasound finding could be seen with an very early IUP, missed spontaneous or possibly due to an occult ectopic . Clinical correlation and correlation with the patient's serial beta hCG level is recommended. Electronically signed by: Molina Cason MD (07/16/2020 9:43 PM) [id number]
--- NOTE | 2020-07-16 22:35 | ED.ADGEN ---
Past Medical History Past Medical History: Other Additional Past Medical Histor: PAST HYPERVENTALATION, miscarriage Past Surgical History: Other Additional Past Surgical Histo: D & C Smoking Status: Never Smoker Alcohol Use: None Drug Use: None General Adult EDM: Chief Complaint: VAGINAL BLEEDING HPI: HPI: Patient is a 20-year-old G3, P0 female who presents to the emergency room com plaining of lower abdominal cramping and vaginal bleeding. Patient states that she believes she is about 6 weeks . She had a positive test 2 weeks ago. She states she has had 2 previous miscarriages. She states that earlier this evening she used the restroom and when she wiped she had some spotting. Since that time she has had increase in bleeding and some lower abdominal cramping. She denies any urinary symptoms. She states this feels similar to prior episodes. Review of Systems: Review of Systems: Complete ROS is negative unless otherwise documented in HPI Allergies: Allergies: Allergies Coded Allergies Type Severity Reaction Last Updated Verified No Known Drug Allergies 03/17/20 No Physical Exam: PE: General: Awake, alert, NAD. Well Nourished, well hydrated. Cooperative HEENT: Atraumatic, EOMI, PERRL, airway patent, moist oral mucosa Neck: Supple, trachea midline Respiratory: CTA bilaterally, normal effort, no wheezing/crackles CV: RRR, no murmur, cap refill <2 GI: Soft, nondistended, nontender, no masses MSK: No obvious deformities Skin: Warm, dry, intact Neuro: A&O x3, speech NL, sensory and motor grossly intact, no focal deficits Psych: Normal affect, normal mood, not suicidal or homicidal Current Patient Data: Labs: Laboratory Tests Test 07/16/20 19:45 07/16/20 19:47 07/16/20 20:35 Urine Collection Type Unknown Urine Color Yellow Urine Clarity Cloudy Urine pH 8.5 (<5.0-8.0) Urine Specific [place] 1.025 (1.000-1.030) Urine Protein Negative mg/dL (NEG-TRACE) Urine Glucose (UA) Negative mg/dL (NEG) Urine Ketones (Stick) Negative mg/dL (NEG) Urine Blood Trace (NEG) Urine Nitrite Negative (NEG) Urine Bilirubin Negative (NEG) Urine Urobilinogen Dipstick 0.2 mg/dL (0.2 mg/dL) Urine Leukocyte Esterase Negative (NEG) Urine RBC 3-5 /HPF (0-2) Urine WBC 1-4 /HPF (0-4) Urine Squamous Epithelial Cells Few /LPF Urine Amorphous Sediment Present /HPF Urine Bacteria 0 /HPF (0-FEW) Urine Mucus Slight /LPF POC Urine HCG, Qualitative Hcg positive (Negative) Maternal Serum HCG Beta Subunit 1149 mIU/mL (0-5) H Vital Signs: Vital Signs Date Time Temp Pulse Resp B/P (MAP) Pulse Ox O2 Delivery O2 Flow Rate FiO2 07/16/20 23:10 78 124/68 (86) 98 07/16/20 20:00 98.8 17 Room Air 98.8 EKG: EKG: [] Heart Score: C/O Chest Pain: N/A Risk Factors: Risk Factors: DM, Current or recent (<one month) smoker, HTN, HLP, family history of CAD, obesity. Risk Scores: Score 0 - 3: 2.5% MACE over next 6 weeks - Discharge Home Score 4 - 6: 20.3% MACE over next 6 weeks - Admit for Clinical Observation Score 7 - 10: 72.7% MACE over next 6 weeks - Early Invasive Strategies Radiology/Procedures: Radiology/Procedures: [] Course & Med Decision Making: Course & Med Decision Making Pertinent Labs and Imaging studies reviewed. (See chart for details) Patient is a 20 year-old G 3 P 0 who presents to the Emergency Room with vaginal bleeding and abdominal pain. Patient has not seen passage of tissue. She has not had a formal ultrasound and does not have a confirmed IUP. UA, Rh type, OB ultrasound, test were ordered. At this time, ultrasound shows an empty uterus which could be related to early , miscarriage, or occult ectopic. Patient does not need rhogam. I discussed with the patient that she will need a repeat ultrasound and beta-hCG in 2 to 3 days. We discussed signs and symptoms of an ectopic . She will follow up with Dr. Hauser her ADMINISTRATIVE OFFICE CLERK. We have discussed early on in we are unable to prevent miscarriages. We will discussed pelvic rest until she follows up with OBGYN. She will return to the Emergency Room if she has a large amount of bleeding, syncope, SOB. Patient's test results and vitals while in the ED were fully reviewed and discussed with the patient. Patient is stable and at this time does not need admission to the hospital. We have discussed strict return precautions and the importance of following up with their Primary Care Physician. Patient stated understanding and was given an opportunity to ask any questions. La Disclaimer: La Disclaimer: This electronic medical record was generated, in whole or in part, using a voice recognition dictation system. Departure Departure Impression: Primary Impression: Threatened in early Disposition: HOME / SELF CARE / HOMELESS Condition: STABLE Referrals: NO PCP (PCP) Patient Instructions: Threatened Miscarriage ANABELLA LOUIS MD July 16, 2020 22:35
[2020-07-16 23:10] VITALS: BP 124/68
== END 2020-07-16 23:10 | disposition home or self-care (01) ==
LOC: ER 19:19
DX: O20.0 Threatened abortion (principal); Z3A.01 Less than 8 weeks gestation of pregnancy
CPT/HCPCS: 36415; 76801; 81001; 81025; 84702; 86850; 86900; 86901; 99284-25

== ENCOUNTER → 2020-07-19 | Outpatient (CLI) | payer OTHER ==
[2020-07-16 23:10] VITALS: BP 124/68
== END ==
LOC: LAB 10:46
PROVIDERS: ATTEND Obstetrics & Gynecology
DX: N93.9 Abnormal uterine and vaginal bleeding, unspecified (principal)
CPT/HCPCS: 36415; 84702